=== PATIENT | male | born 2000 ===

== ENCOUNTER 2022-01-26 10:48 | Emergency (ER) | payer OTHER, SELFPAY ==
--- NOTE | 2022-01-26 07:44 | ECG_ITS ---
Test Reason : TACHYCARDIA Blood Pressure : / mmHG Vent. Rate : 114 BPM Atrial Rate : 114 BPM P-R Int : 150 ms QRS Dur : 086 ms QT Int : 312 ms P-R-T Axes : 071 030 044 degrees QTc Int : 430 ms Sinus tachycardia Possible Left atrial enlargement Borderline ECG When compared with ECG of 26-JAN-2022 11:52, No significant change was found Referred By: Benita Abdalla Electronically Signed By:BARON HERMAN
[2022-01-26 10:49] VITALS: BP 97/56; PULSE 122; RESP 19; TEMP 37; O2SAT 98; BMI 19.3
--- NOTE | 2022-01-26 11:15 | ED.HA ---
HPI - Headache General Chief Complaint: Headache Stated Complaint: migraines Time Seen by Provider: 01/26/22 10:56 Source: patient and family (mom) Mode of arrival: ambulatory Limitations: no limitations History of Present Illness HPI Narrative: 21-year-old male here with his mother for headache that started at 04:00 this morning. Patient woke up from sleep with a 10/10 headache. Patient continued to wake up with a headache every hour this morning, patient has no headache history. His sister was diagnosed with COVID 2 days ago at home. Patient also endorses body aches and feeling weak Patient has had no fevers, no nausea, no vomiting, no cough, no runny nose, no chest pain, no shortness of breath, no dizziness, no lightheadedness, no neck pain, no stiff neck, patient is not on any daily medications and is healthy at baseline. MD elicited complaint: headache Onset (ago): hour(s) (7) Onset description: suddenly Severity: severe Pain scale (0-10): 10 Exacerbating factors: noise Context: other (Woke patient from sleep) Associated symptoms: none Treatments prior to arrival: acetaminophen Related Data Previous Rx's Medication Instructions Recorded dexamethasone 6 mg tablet 6 mg PO DAILY 3 Days #3 tab 01/26/22 Allergies Allergy/AdvReac Type Severity Reaction Status Date / Time No Known Allergies Allergy Unverified 05/11/20 17:33 Review of Systems Constitutional: Constitutional: Reports body ache(s), Denies chills, Denies fatigue, Denies fever(s), Reports headache(s), Denies malaise and Reports weakness Eyes: Eyes: Denies blurry vision, Denies change in vision, Denies diplopia, Denies loss of vision, Denies other visual disturbances and Denies eye pain ENT: Reports Normal hearing present, Denies vertigo, Denies dizziness, Denies otalgia, Reports headache(s), Denies mouth pain, Denies nasal congestion, Denies nasal discharge, Denies nasal obstruction, Denies disequilibrium, Denies post nasal drip, Denies sinus pain, Denies sinus pressure, Denies sore throat and Denies throat swelling Cardiovascular: Cardiovascular: Denies chest pain, Denies syncope, Denies leg edema, Denies lightheadedness, Denies Loss of Consciousness, Denies palpitations and Denies dyspnea Respiratory: Respiratory: Denies chest congestion, Denies cough and Denies dyspnea Gastrointestinal: Gastrointestinal: Denies abdominal pain, Denies hematochezia, Denies constipation, Denies diarrhea, Denies nausea and Denies vomiting Musculoskeletal: Musculoskeletal: Denies abnormal gait, Reports myalgias and Denies tingling Neurologic: Reports Normal hearing present, Denies Neuro-related abnormal movements, Denies Abnormal speech present, Denies abnormal gait, Denies confusion, Denies vertigo, Denies dizziness, Denies syncope, Reports headache(s), Denies lack of coordination, Denies focal weakness, Denies loss of vision, Denies Other visual disturbances, Denies seizure-like activity, Denies Sensory deficit (Neuro), Denies tingling, Denies paresthesias, Denies disequilibrium and Reports weakness Psychiatric: Psychiatric: Denies anxiety, Denies confusion and Denies depression Endocrine: Endocrine: Denies fatigue and Denies palpitations Allergic/Immunologic: Allergic/Immunologic: Denies throat swelling PMFSH Social History Social History Advance Directives: No Advance Directives Information Provided: No Physical Exam Vital Signs: Vital Signs: Last Vital Signs Temp 98.6 F 01/26/22 10:49 Pulse 122 H 01/26/22 10:49 Resp 19 01/26/22 10:49 BP 97/56 L 01/26/22 10:49 Pulse Ox 98 01/26/22 10:49 BMI result Body Mass Index 19.3 Const: General: healthy appearing, comfortable, no acute distress, well developed, alert and awake; No confusion Nutritional Appearance: well nourished Orientation/consciousness: patient oriented x3 and No confusion Limitations: no limitations HEENT: Head: Yes normal to inspection, Yes normocephalic and Yes atraumatic Ears: hearing grossly normal bilaterally, external ears normal, TM's normal bilaterally and EAC's normal General nose exam: Normal external nose present Face and sinus: Yes normal facial exam and Yes sinuses nontender Mouth: Normal oral and palatal mucosa present Throat: Yes posterior oropharynx normal Eyes: Conjunctivae: conjunctivae normal Pupils: Equal, round and reactive pupils present EOM: EOMs intact bilaterally and No Nystagmus present Neck: Neck: Yes full ROM, Yes no lymphadenopathy and Yes supple Resp: Effort & Inspection: normal respiratory effort and able to speak in complete sentences Auscultation: clear to auscultation bilaterally, no crackles, no rales, no rhonchi and no wheezes Cardio: Rate: regular rate Rhythm: regular rhythm Heart sounds: S1 normal heart sound present and S2 normal heart sound present GI: Inspection: Yes normal to inspection Palpation (GI): Soft to palpation, nontender, no guarding and not rigid Percussion: Yes normal to percussion Auscultation: normal bowel sounds Skin: General skin exam: no rashes or lesions noted Neuro: General: patient oriented x3 and No confusion Cranial nerves: Yes CN's II-XII intact bilaterally, Yes Facial sensation intact/muscles of mastication intact, Yes Equal, round and reactive pupils present, Yes Normal accommodation reflex present, Yes Bilaterally intact EOM present, Yes Nystagmus not present, Yes Normal facial strength present, Yes Normal hearing present, Yes Ability to bilaterally rotate head present, Yes Ability to bilaterally elevate shoulders present and No Nystagmus present Cognition (Neuro): normal cognition Speech: No Abnormal speech present Gait exam (Neuro): Normal gait present Motor exam (neuro): 5/5 motor strength present throughout, Pronator motor function not present and Normal motor muscle tone present throughout Sensory Exam: No Sensory deficit (Neuro) Deep tendon reflexes (DTR's): Right brachioradialis reflex intensity grade: 1+, Left brachioradialis reflex intensity grade: 1+, Right patellar reflex intensity grade: 1+ and Left patellar reflex intensity grade: 1+ Coordination: [id number] test normal, [id number]-nr-[id number] test normal, tandem gait normal and does not sway with eyes open Romberg Test: Negative Pupils: Normal pupillary reactivity/response: bilateral Extrem: General: Yes normal to inspection and Yes full ROM Psych: Appearance: grossly normal Affect: normal affect Attitude: cooperative Thought process: Normal thought process present Course Course Course Narrative: 21-year-old male presents with headache that woke him from sleep, body aches, and weakness, sister tested COVID positive at home 2 days ago. On exam, patient is tachycardic at 01:20, has a benign neurological exam, is afebrile, lungs clear to auscultation bilaterally, no acute physical exam findings. Covid positive here today, Flu negative. After Tylenol and Motrin patient still endorses his headache being 10/10 EKG shows RBBB, sinus tach at 114. Mom at bedside is very anxious as she is unvaccinated for COVID and so are her children. Because patient's headache has not resolved, will give fluids, Reglan, Benadryl, and reassess headache after treatment Discussed case with Dr Abdalla, who did not think we needed further imaging or diagnostics at this time, in the setting of a Covid positive test. Reevaluation(s) Reevaluation #1: On re-evaluation, after fluids, Reglan, Benadryl, patient's headache has resolved completely. Pain is 0/10. Patient has been on monitoring manager, his heart rate has been in the 90s, when I walk into the room, patient's heart rate increases by 20 points. Patient does endorse being anxious. Will treat with dexamethasone so no rebound headache, gave COVID quarantine instructions, gave headache return precautions, specifically if patient has sudden severe headache again, gait disturbance, neck pain, visual changes, he must return to the emergency room immediately. Counseled patient and mother to follow-up with primary care provider for repeat EKG and possible referral by primary care provider to Cardiology MDM - Headache Lab Data Labs: Lab Results 01/26/22 01/26/22 Range/Units 10:57 10:57 COVID-19 (JOVANNI) Positive A (Negative) COVID-19 Clin Com See Note Influenza Type A (NICOLAS) Negative (Negative) Influenza Type B (NICOLAS) Negative (Negative) Influenza A & B Note See Note ECG Data Interpretation: Sinus tachycardia at a rate of 114, AZ 150, QRS 86, QTC 430, normal axis, no ST depression or elevation, no T-wave changes, right bundle branch block seen in leads 3, AVF, V1, V2 Discharge Plan Discharge Clinical Impression: Headache, COVID-19, Right bundle branch block (RBBB) on electrocardiogram (ECG) Patient Disposition: Home, Self-Care Instructions: Acute Headache (ED), COVID-19 (Coronavirus Disease 2019) (ED) Additional Instructions: 1.) Covid: Isolated home, stand room for the next 5 days. You may alternate Tylenol and ibuprofen for fever and body aches. Drink plenty of fluids, 2 L of water a day. After 5 days, he may go out in public, but wear mask for an additional 5 days 2.) . EKG showed you have something called a right bundle branch block. This is not pathological, but you need to call your primary care provider for follow-up EKG and possible referral to cardiology 3.) Headache: If your headache persists, if you have vomiting, neck pain, visual changes, gait disturbance, please return to the emergency room I prescribed dexamethasone Raine do not have a rebound headache, you got your dose today, I prescribed 3 days for you starting tomorrow January 27 Prescriptions: New dexamethasone 6 mg tablet 6 mg PO DAILY 3 Days Qty: 3 0RF Rx Instructions: start January 27, 2022
[2022-01-26 11:18] LABS: COVID-19 Test Positive (Negative); IDNOW Serial# 16C4AD1C
[2022-01-26 11:21] LABS: Influenza A Negative (Negative); Influenza B2 Negative (Negative)
[2022-01-26] MEDS: Ibuprofen 800 MG TABLET PO (11:25)
[2022-01-26] MEDS: 0.9 % Sodium Chloride 1,000 ML 999 ML IV (11:46)
--- NOTE | 2022-01-26 11:48 | ECG_ITS ---
Test Reason : TACHYCARDIA Blood Pressure : / mmHG Vent. Rate : 115 BPM Atrial Rate : 115 BPM P-R Int : 150 ms QRS Dur : 086 ms QT Int : 312 ms P-R-T Axes : 073 031 038 degrees QTc Int : 431 ms Sinus tachycardia Possible Left atrial enlargement Borderline ECG No previous ECGs available Referred By: Candelaria Montejo Electronically Signed By:CAROLINE MANCIA MD
[2022-01-26] MEDS: Ketorolac Tromethamine 15 MG/ML VIAL IVPUSH (12:03)
[2022-01-26] MEDS: diphenhydrAMINE HCL 50 MG/ML VIAL 25 MG IVPUSH (12:05)
[2022-01-26] MEDS: Metoclopramide HCl 10 MG/2 ML VIAL IVPUSH (12:09)
[2022-01-26] MEDS: dexAMETHasone sod phosphate 4 MG/ML VIAL 6 MG IVPUSH (13:50)
[2022-01-26 14:09] VITALS: BP 97/46; PULSE 105; RESP 18; TEMP 36.7; O2SAT 97
== END 2022-01-26 14:07 | disposition home or self-care (01) ==
PROVIDERS: Emergency Provider Student in an Organized Health Care Education/Training Program
DX: U07.1 COVID-19 (principal); R51.9 Headache, unspecified; I45.10 Unspecified right bundle-branch block
CPT/HCPCS: 87502; 87635; 93005; 96361; 96374; 96375; 99284; J1100; J1200; J1885; J2765

== ENCOUNTER 2023-03-05 18:17 | Emergency (ER) | payer OTHER, SELFPAY ==
[2023-03-05 19:25] VITALS: BP 110/63; PULSE 74; RESP 18; TEMP 36.5; O2SAT 94; BMI 21.2
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
--- NOTE | 2023-03-05 19:38 | PC.NURSE ---
Product is [employer] XL by [employer], active ingredient Sodium Hydroxide
--- OUTSIDE RECORDS SUMMARY | 2023-03-05 21:52 | XMS_ITS | Continuity of Care Document ---
Author Name Unknown Organization [facility] Address [address] [place] [address]- Care Team Providers Care Director Distribution Name Role Phone Gilles Janeth RICHMOND Primary Care Physician [phone] Encounter [facility] Date(s): 01/29/22 - 02/28/22 [facility] Adult [address] [place] [address]- Allergies, Adverse Reactions, Alerts No Known Allergies Immunizations Given and Recorded Vaccine Date Status Refusal Reason meningococcal group B vaccine 04/16/18 Recorded Human Papillomavirus Vaccine 09/04/16 Recorded Human Papillomavirus Vaccine 08/24/15 Recorded Human Papillomavirus Vaccine 04/07/14 Recorded tetanus/diphtheria/pertussis, acel(Tdap) 04/07/14 Recorded Meningococcal Conjugate Vaccine 04/07/14 Recorded Hepatitis A Vaccine (oldterm) 04/07/14 Recorded Hepatitis A Vaccine (oldterm) 08/10/12 Recorded Varicella Virus Vaccine 07/24/09 Recorded Varicella Virus Vaccine 01/31/06 Recorded Measles/Mumps/Rubella Virus Vaccine 01/27/06 Recor ded Measles/Mumps/Rubella Virus Vaccine 01/31/03 Recor ded Poliovirus Vaccine, Inactivated 01/27/06 Recorded Poliovirus Vaccine, Inactivated 02 Recorded Poliovirus Vaccine, Inactivated 02 Recorded Poliovirus Vaccine, Inactivated 02 Recorded diphtheria/tetanus/pertussis, acel(DTaP) 01/27/06 Recorded diphtheria/tetanus/pertussis, acel(DTaP) 04/29/03 Recorded diphtheria/tetanus/pertussis, acel(DTaP) 02 Recorded diphtheria/tetanus/pertussis, acel(DTaP) 02 Recorded diphtheria/tetanus/pertussis, acel(DTaP) 02 Recorded pneumococcal 7-valent vaccine 04/29/03 Recorded pneumococcal 7-valent vaccine 01/31/03 Recorded pneumococcal 7-valent vaccine 02 Recorded Haemophilus B Conj Vaccine (oldterm) 04/29/03 Kashif rded Haemophilus B Conj Vaccine (oldterm) 02 Kashif rded Haemophilus B Conj Vaccine (oldterm) 02 Kashif rded Haemophilus B Conj Vaccine (oldterm) 02 Kashif rded Hepatitis B Vaccine (old term) 02 Recorded Hepatitis B Vaccine (old term) 02 Recorded Hepatitis B Vaccine (old term) 02 Recorded Medications benzoyl peroxide 5% topical liquid 1 application, Topically, 2 times a day, # 148 Gm, 0 Refills, Maintenance, 08/09/20 11:15:00 EST, Liquid, Partial fill upon patient request if the prescription is for a schedule II opioid drug. Start Date: 08/09/20 Status: Ordered erythromycin 2% topical gel 1 application, Topically, 2 times a day, # 30 Gm, 1 Refills, Maintenance, 08/11/20 12:24:00 EST, Gel, [id number], 1 application Topically 2 times a day, 172, cm, 08/09/20 10:43:00 EST, Height Start Date: 08/11/20 Status: Ordered Problem List Condition Effective Dates Status Health Status Inform ant Acne(Confirmed) Active History of ADHD(Confirmed) Active Bundle branch block, right(Confirmed) Active Social History Social History Type Response Smoking Status Never (less than 100 in lifetime) entered on: 08/09/20 Sex
--- OUTSIDE RECORDS SUMMARY | 2023-03-05 21:52 | XMS_ITS | Continuity of Care Document ---
Author Name Unknown Organization [facility] Address [address] [place] [address]- Care Team Providers Care Weatherization Administrator Name Role Phone Gilles Janeth RICHMOND Primary Care Physician Encounter [facility] Date(s): 11/16/21 - 12/16/21 [facility] [address] [place] [id number] Allergies, Adverse Reactions, Alerts No Known Allergies [...] 1 Refills, Maintenance, 08/11/20 12:24:00 EST, Gel, [id number], 1 application Topically 2 times a day, 172, cm, 08/09/20 10:43:00 EST, Height Start Date: 08/11/20 Status: Ordered Problem List Condition Effective Dates Status Health Status Inform ant Acne(Confirmed) Active History of ADHD(Confirmed) Active Annual physical exam(Confirmed) Active Social History Social History Type Response Smoking Status Never (less than 100 in lifetime) entered on: 08/09/20 Sex
--- OUTSIDE RECORDS SUMMARY | 2023-03-05 21:52 | XMS_ITS | Continuity of Care Document ---
Author [facility] Address [address] [place] [address]- Care Team Providers Care Sales Exhibitor Name Role Phone Janeth Campoverde NP Primary Care Physician Encounter [facility] Date(s): 02/06/22 - 02/13/22 [facility] Adult [address] [place] [address]- Attending Physician: Janeth Campoverde NP Allergies, Adverse Reactions, Alerts No Known Allergies [...] ADHD(Confirmed) Active Bundle branch block, right(Confirmed) Active Vital Signs Most recent to oldest [Reference Range]: 1 Height 172 cm (02/06/22 9:07 AM) Weight 59.5 kg (02/06/22 9:07 AM) Oxygen Saturation [94-100 %] 98 % (02/06/22 9:07 AM) Pulse Rate [55-90 bpm] 84 bpm (02/06/22 9:07 AM) Body Mass Index [18.5-24.99] 20.11 (02/06/22 9:07 AM) Blood Pressure [90-138/55-84 mm Hg] 100/ 65mm Hg (02/06/22 9:07 AM) Temperature [96.8-100.4 DegF] 97.8 DegF (02/06/22 9:07 AM) Blood pressure sites Arm, right (02/06/22 9:07 AM) Temperature Route Temporal (02/06/22 9:07 AM) Weight Obtained Via Standing scale (02/06/22 9:07 AM) Social History Social History Type Response Smoking Status Never (less than 100 in lifetime) entered on: 08/09/20 Sex
--- OUTSIDE RECORDS SUMMARY | 2023-03-05 21:52 | XMS_ITS | Continuity of Care Document ---
Author Name Unknown Organization [facility] Address [address] [place] [id number]- Care Team Providers Care Soil Tester Name Role Phone Gilles Janeth RICHMOND Primary Care Physician [phone] Encounter [facility] Date(s): 08/13/21 - 09/12/21 [facility] Adult [address] [place] [address]- Attending Physician: Leila Gallego Admitting Physician: AdmLeila watters Referring Physician: Admtr, [id number] Allergies, Adverse Reactions, Alerts No Known Allergies [...] 1 Refills, Maintenance, 08/11/20 12:24:00 EST, Gel, [id number], 1 application Topically 2 times a day, 172, cm, 08/09/20 10:43:00 EST, Height Start Date: 08/11/20 Status: Ordered Problem List Condition Effective Dates Status Health Status Inform ant Acne(Confirmed) Active History of ADHD(Confirmed) Active Social History Social History Type Response Smoking Status Never (less than 100 in lifetime) entered on: 08/09/20 Sex
--- OUTSIDE RECORDS SUMMARY | 2023-03-05 21:52 | XMS_ITS | Continuity of Care Document ---
Author Name Unknown Organization [facility] Address [address] [place] [address]- Care Team Providers Care Volunteer Recruiter Name Role Phone Gilles Janeth RICHMOND Primary Care Physician Encounter [facility] Date(s): 07/31/20 - 08/30/20 [facility] Adult [address] [place] [address]- Allergies, Adverse Reactions, Alerts Substance Reaction Severity Status NKA Active Immunizations Given and Recorded Vaccine Date Status [...] 1 Refills, Maintenance, 08/11/20 12:24:00 EST, Gel, [facility] #[id number], 1 application Topically 2 times a day, 172, cm, 08/09/20 10:43:00 EST, Height Start Date: 08/11/20 Status: Ordered Problem List Condition Effective Dates Status Health Status Inform ant Acne(Confirmed) Active History of ADHD(Confirmed) Active Social History Social History Type Response Smoking Status Never (less than 100 in lifetime) entered on: 08/09/20 Sex
--- OUTSIDE RECORDS SUMMARY | 2023-03-05 21:52 | XMS_ITS | Continuity of Care Document ---
Author Name Unknown Organization [facility] Address [address] [place] [address]- Care Team Providers Care Certified Rehabilitation Counselor Name Role Phone Gilles Janeth RICHMOND Primary Care Physician Encounter [facility] Date(s): 10/30/22 - 11/29/22 [facility] Adult [address] [place] [address]- Allergies, Adverse Reactions, Alerts No Known Allergies [...] Date: 08/11/20 Status: Ordered Problem List Condition Confirmation Course Effective Dates Status Health St [facility] Informant Acne Confirmed Active History of ADHD Confirmed Active Bundle branch block, right Confirmed Active Social History Social History Type Response Smoking Status Never (less than 100 in lifetime) entered on: 08/09/20 Sex Patient Care team information Care Team Personnel Name: Janeth Campoverde NP Position: [facility] Associate Professional Member Role: PCP Address: Address: [address] [place] [address]- Care Team Related Persons Name: TAM HDZ Address: home [address] [place] [address] Name: HODA MARTIN Address: home [address] [place] [address]
--- OUTSIDE RECORDS SUMMARY | 2023-03-05 21:52 | XMS_ITS | Continuity of Care Document ---
Author Name Unknown Organization [facility] Jacoby lt Address [address] [place] [address]- Care Team Providers Care Sky Line Yarder Name Role Phone Gilles Janeth RICHMOND Primary Care Physician [phone] Encounter [facility] Date(s): 02/06/22 - 03/08/22 [facility] Adult [address] [place] [address]- Attending Physician: Admtr, Ar8 Admitting Physician: Admtr, Ar8 Referring Physician: Admtr, Ar8 Allergies, Adverse Reactions, [...] 1 Refills, Maintenance, 08/11/20 12:24:00 EST, Gel, [facility]/pharmacy #[id number], 1 application Topically 2 times [...]
--- OUTSIDE RECORDS SUMMARY | 2023-03-05 21:52 | XMS_ITS | Continuity of Care Document ---
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
--- OUTSIDE RECORDS SUMMARY | 2023-03-05 21:52 | XMS_ITS | Continuity of Care Document ---
Author Name Unknown Organization [facility] Jacoby lt Address [address] [place] [id number]- Care Team Providers Care Buddhist Monk Name Role Phone Janeth Campoverde NP Primary Care Physician [place] [facility] [place]/15/21 - 09/12/21 [facility] Adult [address] [place] [address]- Encounter Diagnosis Annual physical exam(Discharge Diagnosis) - 08/12/21 Attending Physician: Janeth Campoverde NP Referring Physician: Aldo Forte MD Allergies, Adverse Reactions, Alerts No Known Allergies [...] Refills, Maintenance, 08/11/20 12:24:00 EST, Gel, [facility]/pharmacy #[id number], 1 application Topically 2 times a day, 172, cm, 08/09/20 10:43:00 EST, Height Start Date: 08/11/20 Status: Ordered Problem List Condition Effective Dates Status Health Status Inform ant Acne(Confirmed) Active History of ADHD(Confirmed) Active Diagnosis Diagnosis Type Effective Dates Health Status Cl inical Service Informant Annual physical exam Discharge Diagnosis 08/12/21 Social History Social History Type Response Smoking Status Never (less than 100 in lifetime) entered on: 08/09/20 Sex
--- OUTSIDE RECORDS SUMMARY | 2023-03-05 21:52 | XMS_ITS | Continuity of Care Document ---
Author Name Unknown Organization [facility] [place] Jacoby Address [address] [place] [address]- Care Team Providers Care Loan Adviser Name Role Phone Gilles RECREATIONAL ASSISTANTJaneth Primary Care Physician [place] [facility] [place] 08/16/20 [facility] [place] Adult [address] [place] [address]- Encounter Diagnosis Annual physical exam(Discharge Diagnosis) - 08/07/20 Acne(Discharge Diagnosis) - 08/09/20 History of ADHD(Discharge Diagnosis) - 08/09/20 Attending Physician: Not on Staff, Attending MD Allergies, Adverse Reactions, Alerts Substance Reaction Severity [...] Service Informant Annual physical exam Discharge Diagnosis 08/07/20 Acne Discharge Diagnosis 08/09/20 History of ADHD Discharge Diagnosis 08/09/20 Vital Signs Most recent to oldest [Reference Range]: 1 Height 172 cm (08/09/20 10:43 AM) Weight 57.4 kg (08/09/20 10:43 AM) Oxygen Saturation [94-100 %] 96 % (08/09/20 10:43 AM) Pulse Rate [55-90 bpm] 74 bpm (08/09/20 10:43 AM) Body Mass Index [18.5-24.99] 19.4 (08/09/20 10:43 AM) Blood Pressure [71-110/30-71 mm Hg] 110/ 72mm Hg (08/09/20 10:43 AM) Blood pressure sites Arm, right (08/09/20 10:43 AM) Social History Social History Type Response Smoking Status Never (less than 100 in lifetime) entered on: 08/09/20 Sex
--- OUTSIDE RECORDS SUMMARY | 2023-03-05 21:52 | XMS_ITS | Continuity of Care Document ---
Author Name Unknown Organization [facility] Jacoby lt Address [address] [place] [id number]- Care Team Providers Care Ophthalmic Tech Name Role Phone Janeth Campoverde NP Primary Care Physician [phone] [place] [facility] [place](s): 11/14/21 - 11/21/21 [facility] Adult [address] [place] [address]- Encounter Diagnosis Annual physical exam(Discharge Diagnosis) - 11/14/21 Acne(Discharge Diagnosis) - 11/14/21 History of ADHD(Discharge Diagnosis) - 11/14/21 Attending Physician: Livia Ozuna NP Referring Physician: Janeth Campoverde NP Allergies, Adverse Reactions, [...] 1 Refills, Maintenance, 08/11/20 12:24:00 EST, Gel, [facility]/pharmacy #[id number], 1 application Topically 2 times a day, 172, cm, 08/09/20 10:43:00 EST, Height Start Date: 08/11/20 Status: Ordered Problem List Condition Effective Dates Status Health Status Inform ant Acne(Confirmed) Active History of ADHD(Confirmed) Active Annual physical exam(Confirmed) Active Diagnosis Diagnosis Type Effective Dates Health Status Cl inical Service Informant Annual physical exam Discharge Diagnosis 11/14/21 Acne Discharge Diagnosis 11/14/21 History of ADHD Discharge Diagnosis 11/14/21 Vital Signs Most recent to oldest [Reference Range]: 1 Height 172 cm (11/14/21 7:51 AM) Weight 60.4 kg (11/14/21 7:51 AM) Oxygen Saturation [94-100 %] 100 % (11/14/21 7:51 AM) Pulse Rate [55-90 bpm] 69 bpm (11/14/21 7:51 AM) Body Mass Index [18.5-24.99] 20.42 (11/14/21 7:51 AM) Blood Pressure [90-138/55-84 mm Hg] 103/ 56mm Hg (11/14/21 7:51 AM) Blood pressure sites Arm, right (11/14/21 7:51 AM) Weight Obtained Via Standing scale (11/14/21 7:51 AM) Social History Social History Type Response Smoking Status Never (less than 100 in lifetime) entered on: 08/09/20 Sex
[2023-03-05] MEDS: Bacitracin Oint 0.9 GM PACKET 1 APPL TOPICAL (22:07)
[2023-03-05 22:22] VITALS: BP 109/70; PULSE 76; RESP 16; O2SAT 97
== END 2023-03-05 22:29 | disposition home or self-care (01) ==
PROVIDERS: Emergency Provider Student in an Organized Health Care Education/Training Program
DX: T55.1X1A Toxic effect of detergents, accidental (unintentional), initial encounter (principal); T25.721A Corrosion of third degree of right foot, initial encounter; T25.621A Corrosion of second degree of right foot, initial encounter; T32.0 Corrosions involving less than 10% of body surface; X08.8XXA Exposure to other specified smoke, fire and flames, initial encounter; Y93.G1 Activity, food preparation and clean up; Y92.511 Restaurant or cafe as the place of occurrence of the external cause; Y99.0 Civilian activity done for income or pay
CPT/HCPCS: 16000; 99283; 99284

== ENCOUNTER 2023-03-17 08:00 | Outpatient (RCR) | payer OTHER, SELFPAY | END 2023-07-29 17:00 | disposition home or self-care (01) | LOC: HO.WCC 08:00 | PROVIDERS: Visit Provider Surgery | DX: T25.221A Burn of second degree of right foot, initial encounter (principal); T31.0 Burns involving less than 10% of body surface | CPT/HCPCS: 11042; 11045; 16020; 16025 ==